=== PATIENT | female | born 1975 | race Caucasian/White ===

== ENCOUNTER → 2018-05-30 | Outpatient (CLI) | payer BC ==
[2004-05-28 04:36] VITALS: TEMP 98.3
== END ==
LOC: MC.RAD 08:45
DX: Z12.31 Encounter for screening mammogram for malignant neoplasm of breast (principal); N64.89 Other specified disorders of breast

== ENCOUNTER → 2018-06-03 | Outpatient (CLI) | payer BC ==
[2004-05-28 04:36] VITALS: TEMP 98.3
== END ==
LOC: MC.RAD 09:30
DX: N64.89 Other specified disorders of breast (principal); N63.20 Unspecified lump in the left breast, unspecified quadrant
CPT/HCPCS: G0279

== ENCOUNTER → 2018-12-05 | Outpatient (CLI) | payer BC ==
[2004-05-28 04:36] VITALS: TEMP 98.3
== END ==
LOC: MC.RAD 10:00
DX: R92.2 Inconclusive mammogram (principal)
CPT/HCPCS: G0279

== ENCOUNTER → 2019-09-17 | Outpatient (CLI) | payer BC ==
[2004-05-28 04:36] VITALS: TEMP 98.3
== END ==
LOC: COL.LAB 08:46
DX: J02.9 Acute pharyngitis, unspecified (principal); Z20.828 Contact with and (suspected) exposure to other viral communicable diseases

== ENCOUNTER → 2020-06-17 | Outpatient (CLI) | payer BC ==
[2004-05-28 04:36] VITALS: TEMP 98.3
== END ==
LOC: MC.RAD 09:45
DX: Z12.31 Encounter for screening mammogram for malignant neoplasm of breast (principal)

== ENCOUNTER → 2021-07-28 | Outpatient (CLI) | payer BC ==
[2004-05-28 04:36] VITALS: TEMP 98.3
== END ==
LOC: MC.RAD 14:30
DX: Z12.31 Encounter for screening mammogram for malignant neoplasm of breast (principal)

== ENCOUNTER → 2024-01-11 | Outpatient (CLI) | payer BC ==
[2004-05-28 04:36] VITALS: BP 127/93; PULSE 81; TEMP 98.3
== END ==
LOC: MC.RAD 09:30
DX: Z12.31 Encounter for screening mammogram for malignant neoplasm of breast (principal); N64.89 Other specified disorders of breast